=== PATIENT | male | born 1960 | race Caucasian/White ===

== ENCOUNTER 2018-11-26 09:12 | Outpatient (CLI) | payer BC | END 2018-11-26 09:13 | disposition home or self-care (01) | LOC: C.RADIC 09:12 | DX: N20.0 Calculus of kidney (principal); N39.0 Urinary tract infection, site not specified ==

== ENCOUNTER 2018-12-04 12:38 | Outpatient (CLI) | payer BC | END 2018-12-04 12:39 | disposition home or self-care (01) | LOC: C.USIC 12:38 | DX: N20.0 Calculus of kidney (principal); N39.0 Urinary tract infection, site not specified ==

== ENCOUNTER 2019-01-19 09:59 | Outpatient (CLI) | payer BC | END 2019-01-19 10:00 | disposition home or self-care (01) | LOC: C.CTH 09:59 ==